=== PATIENT | female | born 1970 | race African-American/Black ===

== ENCOUNTER → 2019-09-12 | Outpatient (CLI) | payer SELFPAY ==
--- NOTE | 2019-09-12 12:14 | Diagnostic Imaging Report ---
Examination: MRI BRAIN WO CONTRAST History: Slurred speech 2 weeks ago. Dizziness. Headaches. Comparison studies: None Technique: Sagittal T2; axial DWI, FLAIR, GRE or SWI, T1, Coronal FLAIR. Intravenous contrast: None Findings: Scalp: No abnormal signal. No masses. Bone marrow: Normal in signal intensity. Brain volume: Adequate for age. No volume loss. Ventricles: Normal in size and configuration. No hydrocephalus. Extra-axial spaces: No abnormalities. Parenchyma: No abnormal signal intensities. No masses, hemorrhage, acute or chronic vascular insults. Suprasellar and sellar region: No abnormalities. Craniocervical junction: No abnormalities. The foramen magnum is patent. No Chiari malformations. Vessels: Normal flow-voids in the arteries and sinuses. Additional findings:None. IMPRESSION: No acute infarct or hemorrhage. Signed by: Dr. Anila Centeno M.D. on 09/12/2019 12:10 PM
--- NOTE | 2019-09-12 13:52 | Diagnostic Imaging Report ---
Thyroid ultrasound CPT code: 63282 History: Thyroid nodule Comparison: None Findings: The thyroid echotexture is normal. Vascularity is normal. The right lobe measures 5.3 x 1.7 x 2.4 cm. The left lobe measures 5.2 x 1.9 x 2.4 cm. The isthmus measures 0.4 cm. Nodules (measurements are AP, transverse, craniocaudal): Right Lobe: Lower pole 1.0 x 0.7 x 0.8 cm smooth, isoechoic, well-circumscribed, wider than tall nodule without internal calcifications. Left Lobe: No cystic mass or discrete solid nodule identified. cm. Isthmus: No cystic mass or discrete solid nodule identified. Lymph Nodes: No cervical lymph nodes are identified. Parathyroids: Not visualized. IMPRESSION: Right thyroid lower pole 1.0cm nodule (TR-3) is likely benign and does not require further imaging follow-up. ACR glossary of thyroid rads TI-RADS 1: No focal lesion. TI-RADS 2: Not suspicious. TI-RADS 3: Mildly suspicious (recommend FNA is greater than or equal to 2.5 cm; follow-up at 1, 3, and 5 years if greater than or equal to 1.5 cm) TI-RADS 4: Moderately Suspicious (recommend FNA is greater than or equal to 1.5 cm; follow-up at 1, 2, 3, and 5 years) TI-RADS 5: Highly suspicious (recommend FNA is greater than or equal to 10 mm) TI-RADS 6: Biopsy-proven malignancy Signed by: Yoel Royal MD on 09/12/2019 1:48 PM
== END ==
LOC: MRI 10:47
PROVIDERS: ATTEND Family Medicine
DX: R51 Headache (principal); R20.0 Anesthesia of skin; R47.81 Slurred speech; E04.9 Nontoxic goiter, unspecified
CPT/HCPCS: 70551; 76536; 93880